=== PATIENT | male | born 1995 | race Two or more races ===

== ENCOUNTER 2023-05-17 10:16 | Emergency (ER) | payer MEDICAID, OTHER ==
[~2023-05-17] VITALS: Ht 177.8 cm; Wt 96.8 kg
[2023-05-17 10:28] VITALS: BP 146/91
[2023-05-17 10:34] LABS: Basophils # (auto) 0 10 ^3/uL (0-0.2); Basophils % (auto) 0.2 % (0.0-2.0); Eosinophils # (auto) 0.2 10 ^3/uL (0-0.8); Eosinophils % (auto) 1.3 % (0.0-7.0); Hematocrit 41.1 % (41.0-53.0); Hemoglobin 13.8 g/dL (13.5-17.5); Lymphocytes # (auto) 2.3 10 ^3/uL (0.4-5.4); Lymphocytes % (auto) 17.4 % (10.0-50.0); Mean Corpuscular Hemoglobin 30.5 pg (28.0-32.0); Mean Corpuscular Hgb Conc. 33.5 g/dL (32.0-36.0); Mean Corpuscular Volume 91.1 fL (80.0-100.0); Monocytes # (auto) 1.1 10 ^3/uL (0-1.3); Neutrophils # (auto) 9.6 10 ^3/uL (1.6-8.6); Neutrophils % (auto) 73.1 % (37.0-80.0); Nucleated Red Blood Cells % 0.1 %; Red Blood Cells 4.51 10^6/uL (4.5-5.90); White Blood Cell 13.2 10^3/uL (4.4-10.8)
[2023-05-17 11:05] LABS: Calcium 9.1 mg/dL (8.5-10.1)
[2023-05-17 11:11] LABS: BUN/Creatinine Ratio 12.4 (10.0-20.0); Bilirubin, Total 0.4 mg/dL (0.2-1.0)
[2023-05-17] MEDS ORDERED: IBU600T PO (11:41)
[2023-05-17] MEDS ORDERED: LEVO500T91 PO (11:41)
== END 2023-05-17 16:18 | disposition home or self-care (01) ==
LOC: ER 10:16
DX: R07.89 Other chest pain (principal); J40 Bronchitis, not specified as acute or chronic
CPT/HCPCS: 36415; 71045; 80053; 84484; 85025; 93005